=== PATIENT | male | born 1970 | race Caucasian/White ===

== ENCOUNTER 2017-07-29 12:54 | Emergency (ER) | payer BC ==
[~2017-07-29] VITALS: Ht 182.9 cm; Wt 98.9 kg
[2017-07-29 13:17] LABS: HEMATOCRIT 41.7 % (38.0-50.0); HEMOGLOBIN 14.5 G/DL (12.5-16.6); MCH 31.9 PG (29.0-34.0); MCHC 34.8 G/DL (30.0-36.0); MCV 91.9 FL (86-99); PLATELET COUNT 296 K/uL (156-360); RBC DIS.WIDTH-SD 40.4 % (39-53); RED BLOOD COUNT 4.54 M/uL (4.00-5.50); WHITE BLOOD COUNT 6.9 K/uL (4.1-10.2)
[2017-07-29 13:25] LABS: CHLORIDE 106 mEq/L (99-109)
[2017-07-29 13:26] LABS: POTASSIUM 3.9 mEq/L (3.7-5.4); SODIUM 139 mEq/L (136-147)
[2017-07-29 13:27] LABS: GLUCOSE 86 mg/dL (70-99)
[2017-07-29 13:32] LABS: UREA NITROGEN (BUN) 9 mg/dL (9-23)
[2017-07-29 13:33] LABS: GFR ESTIMATE (CALCULATED) > 59 mL/min/ (58.99-99999)
[2017-07-29 13:38] LABS: TROP-I INTERPRETATION NEGATIVE; TROPONIN-I < 0.01 ng/mL (0.0-0.30)
[2017-07-29 14:10] LABS: D-DIMER ELISA < 150.00 ng/mLDDU (<230)
[2017-07-29 14:38] VITALS: BP 136/86
[2017-07-29] MEDS ORDERED: PERCOCET 5/31 TABLET PO (14:40)
== END 2017-07-29 14:54 | disposition home or self-care (01) ==
LOC: EME 12:54
DX: S20.212A Contusion of left front wall of thorax, initial encounter (principal); W01.0XXA Fall on same level from slipping, tripping and stumbling without subsequent striking against object, initial encounter; R05 Cough; R11.0 Nausea
CPT/HCPCS: 71101; 80048; 84484; 85027; 85379; 93005; J1885